=== PATIENT | female | born 1945 | race Caucasian/White ===

== ENCOUNTER → 2018-06-26 | Day surgery (SDC) | payer MEDICARE, BC ==
[~2018-06-26] MED LIST: ATOR10TA60 PO; DILT120C2 PO; IV RINGERS,LACTATED 1000ML 1,000 ML IV SCH; LIDOCAINE 1% PF 2 ML VIAL. ID PRN; LISI-334 PO; MECL-51 PO; METF500T16 PO; MIDAZOLAM HCL/PF 2 MG/2 ML VIAL. IV PRN; NIFE20CA PO; PROPOFOL 20 ML IV ONE; fentaNYL PF VIAL 100 MCG/2 ML VIAL IV PRN
[2018-06-26 13:13] VITALS: BP 147/86
--- NOTE | 2018-06-27 15:09 | PATHOLOGY ---
[facility] Accession Number: [id number] . 01 Material submitted: . DUODENAL POLYP . 01 Clinical history: . Polyp . 02 Diagnosis: Small bowel, duodenum, biopsy: - Small bowel mucosa with mild chronic inflammation and mild hyperplastic changes. . (SKM:mml; 06/27/18) [facility]/06/27/2018 . 02 Electronically signed: . Kavon Fisher MD, Pathologist NPI- [id number] . 01 Gross description: . Received in formalin labeled "Reddy, Kenyatta, duodenal polyp BX," are 3 segments of abdalla soft tissue measuring 0.9 x 0.6 x 0.2 cm in aggregate dimensions and ranging from 0.3 to 0.5 cm in maximum dimension. The specimen is submitted entirely in cassette A1. (TSD; 06/26/2018) TOB/TOB . 02 Pathologist provided ICD-10: K52.9 . 02 CPT . 395050 Specimen Comment: A courtesy copy of this report has been sent to Specimen Comment: [phone], . Specimen Comment: Report sent to / DR GUILLEN Performed at: 01 [facility] [address], [place] [id number] MD Matty Betancourt MD Phone: [phone] Performed at: 02 [facility] [address] [place], [place] [id number] MD Chidi Hedrick MD Phone: [phone]
== END | disposition home or self-care (01) ==
LOC: SURG 11:24
PROVIDERS: ATTEND Internal Medicine Gastroenterology
DX: K31.7 Polyp of stomach and duodenum (principal); K29.80 Duodenitis without bleeding; I10 Essential (primary) hypertension; K21.9 Gastro-esophageal reflux disease without esophagitis; E11.9 Type 2 diabetes mellitus without complications; Z79.84 Long term (current) use of oral hypoglycemic drugs; Z79.899 Other long term (current) drug therapy; Z90.49 Acquired absence of other specified parts of digestive tract; F41.9 Anxiety disorder, unspecified; Z86.010 Personal history of colon polyps; Z80.0 Family history of malignant neoplasm of digestive organs; Z83.3 Family history of diabetes mellitus; Z82.49 Family history of ischemic heart disease and other diseases of the circulatory system; Z83.71 Family history of colonic polyps; Z72.89 Other problems related to lifestyle
CPT/HCPCS: 43239; 82962; 88305; J2704